=== PATIENT | female | born 1980 | race Two or more races ===

== ENCOUNTER 2024-08-24 04:44 | Day surgery (SDC) | payer OTHER ==
[2024-08-16 11:45] VITALS: BP 100/63
[~2024-08-24] VITALS: Ht 154.9 cm; Wt 54.0 kg
[~2024-08-24 04:44] MED LIST: ZOCOR40 MG PO
[2024-08-24] MEDS ORDERED: POVIDONE-IODINE 118 ML BOTT TOP ONE (07:18)
[2024-08-24] MEDS ORDERED: DIBUCAINE 30 GM TUBE ONE (07:18)
[2024-08-24] MEDS ORDERED: HEMOSTATIC MATRIX 1 KIT KIT TOP ONE (07:18)
[2024-08-24] MEDS ORDERED: BUPIVACAINE HCL/Mpf 0.5% 10ML VIAL ONE (07:18)
[2024-08-24] MEDS ORDERED: CEFTRIAXONE SODIUM 2,000 MG VIAL ONE (07:19)
[2024-08-24] MEDS ORDERED: METRONIDAZOLE/SODIUM CHLORIDE 500 MG/100 ML PIGGYBACK IV ONE (07:19)
[2024-08-24] MEDS ORDERED: BUPIVACAINE LIPOSOME/PF 266 MG/20 ML VIAL IJ ONE (07:34)
[2024-08-24] MEDS ORDERED: TAMSULOSIN HCL 0.4 MG CAP PO ONE (08:30)
[2024-08-24] MEDS ORDERED: OXYCODONE HCL5 MG PO (08:44)
[2024-08-24] MEDS ORDERED: MORPHINE SULFATE 4 MG/ML VIAL IV ONE (11:50)
== END 2024-08-24 13:30 | disposition home or self-care (01) ==
LOC: CIR.AMB 04:44
PROVIDERS: ATTEND Surgery
DX: K64.2 Third degree hemorrhoids (principal); K64.4 Residual hemorrhoidal skin tags; K62.5 Hemorrhage of anus and rectum